=== PATIENT | male | born 1945 | race Caucasian/White ===

== ENCOUNTER 2022-03-27 14:33 | Emergency (ER) | payer MEDICARE, OTHER ==
[~2022-03-27] VITALS: Ht 177.8 cm; Wt 77.0 kg
[~2022-03-27 14:33] MED LIST: ATOR40TA52 PO; CLOP75TA70 PO; ENAL10TA12 PO; FINA5TAB4 PO; GLIP10TA9 PO; LEVO500T31 PO; PRAZ1CAP PO; ROPI1TAB PO; SERT-160 PO; TOLT2CAP PO; VALP250C PO; VALP250C3 PO
[2022-03-27 16:27] LABS: Basophils # (auto) 0.1 10 ^3/uL (0-0.2); Basophils % (auto) 0.6 % (0.0-2.0); Eosinophils # (auto) 0.1 10 ^3/uL (0-0.8); Eosinophils % (auto) 1.3 % (0.0-7.0); Hematocrit 41.6 % (41.0-53.0); Hemoglobin 14.1 g/dL (13.5-17.5); Lymphocytes # (auto) 1.3 10 ^3/uL (0.4-5.4); Lymphocytes % (auto) 11.6 % (10.0-50.0); Mean Corpuscular Hemoglobin 30.3 pg (28.0-32.0); Mean Corpuscular Hgb Conc. 33.9 g/dL (32.0-36.0); Mean Corpuscular Volume 89.2 fL (80.0-100.0); Monocytes # (auto) 0.7 10 ^3/uL (0-1.3); Monocytes % (auto) 6.4 % (0.0-12.0); Neutrophils # (auto) 8.9 10 ^3/uL (1.6-8.6); Neutrophils % (auto) 80.1 % (37.0-80.0); Nucleated Red Blood Cells % 0.1 %; Red Blood Cells 4.66 10^6/uL (4.5-5.90); Red Cell Distribution Width 13.6 % (11.8-14.3); White Blood Cell 11.1 10^3/uL (4.4-10.8)
[2022-03-27 16:37] LABS: Albumin 3.4 g/dL (3.4-5.0); Calcium 8.8 mg/dL (8.5-10.1); Potassium 3.5 mmol/L (3.5-5.1)
[2022-03-27] MEDS ORDERED: LIDOCAINE W/ EPINEPHRINE 2% INJ 20ML VIAL ONE (16:37)
[2022-03-27 16:39] LABS: BUN/Creatinine Ratio 33.3
[2022-03-27 16:41] LABS: Bilirubin, Total 0.4 mg/dL (0.2-1.0); Total Protein 7.3 g/dL (6.4-8.2)
[2022-03-27] MEDS ORDERED: LIDOCAINE W/ EPINEPHRINE 2% INJ 20ML VIAL IJ ONE (16:45)
[2022-03-27 20:51] VITALS: BP 161/89
[2022-03-27] MEDS ORDERED: diphenhdrAMINE HCL 50 MG/1 ML VL IV ONE (21:15)
== END 2022-03-27 21:41 ==
LOC: ER 14:33 → EDBD 14:33 → ER 21:41
DX: S06.5XAA Traumatic subdural hemorrhage with loss of consciousness status unknown, initial encounter (principal); S61.210A Laceration without foreign body of right index finger without damage to nail, initial encounter; S01.81XA Laceration without foreign body of other part of head, initial encounter; E78.5 Hyperlipidemia, unspecified; E11.9 Type 2 diabetes mellitus without complications; I10 Essential (primary) hypertension; Z88.0 Allergy status to penicillin; Z79.899 Other long term (current) drug therapy; Z79.84 Long term (current) use of oral hypoglycemic drugs; Z86.73 Personal history of transient ischemic attack (TIA), and cerebral infarction without residual deficits; Z90.49 Acquired absence of other specified parts of digestive tract; Z20.822 Contact with and (suspected) exposure to COVID-19; W18.39XA Other fall on same level, initial encounter; Y93.89 Activity, other specified; Y92.511 Restaurant or cafe as the place of occurrence of the external cause; Y99.8 Other external cause status
CPT/HCPCS: 12011; 36415; 70450; 71045; 72125; 73130; 80053; 85025; 87426; 93005; 99285; J1200; 12051

== ENCOUNTER 2022-04-12 12:11 | Emergency (ER) | payer MEDICARE ==
[~2022-04-12] VITALS: Ht 175.3 cm; Wt 63.6 kg
[2022-04-12] MEDS ORDERED: SUCCINYLCHOLINE CHLORIDE 20 MG/ML 10ML VIAL IV ONE ×2 (12:17→12:30)
[2022-04-12] MEDS ORDERED: ETOMIDATE (2MG/ML) 20ML VIAL IV ONE ×2 (12:17→12:30)
[2022-04-12] MEDS ORDERED: MIDAZOLAM DRIP 50 mg/50mL 50 ML IV ONE (12:18)
[2022-04-12] MEDS ORDERED: methylPREDNISolone SOD SUCC 125 MG/2 ML VL ONE (12:19)
[2022-04-12 12:30] VITALS: BP 101/55
[2022-04-12] MEDS ORDERED: methylPREDNISolone SOD SUCC 125 MG/2 ML VL IV ONE (12:30)
[2022-04-12] MEDS ORDERED: MIDAZOLAM DRIP 50 mg/50mL 50 ML IV SCH (12:30)
[2022-04-12 13:06] LABS: Basophils # (auto) 0 10 ^3/uL (0-0.2); Basophils % (auto) 0.1 % (0.0-2.0); Eosinophils # (auto) 0 10 ^3/uL (0-0.8); Hemoglobin 14.4 g/dL (13.5-17.5); Lymphocytes # (auto) 1.3 10 ^3/uL (0.4-5.4); Monocytes # (auto) 2.4 10 ^3/uL (0-1.3); Neutrophils # (auto) 34.3 10 ^3/uL (1.6-8.6)
[2022-04-12] MEDS ORDERED: NOREPINEPHRINE 8 MG/250ML KIT 250 ML IV ONE (13:08)
[2022-04-12 13:09] LABS: Hematocrit 42.9 % (41.0-53.0); Lymphocytes % (auto) 3.4 % (10.0-50.0); Mean Corpuscular Hemoglobin 30.3 pg (28.0-32.0); Mean Corpuscular Hgb Conc. 33.6 g/dL (32.0-36.0); Mean Corpuscular Volume 90.2 fL (80.0-100.0); Monocytes % (auto) 6.2 % (0.0-12.0); Neutrophils % (auto) 90.3 % (37.0-80.0); Red Blood Cells 4.75 10^6/uL (4.5-5.90); Red Cell Distribution Width 13.6 % (11.8-14.3)
[2022-04-12] MEDS ORDERED: NOREPINEPHRINE 8 MG/250ML KIT 250 ML IV SCH (13:15)
[2022-04-12 13:21] LABS: INR 1.1 (0.9-1.15); Partial Thromboplastin Time 25.6 sec (24.6-33.4)
[2022-04-12 13:22] LABS: Alanine Aminotransferase 31 U/L (16-61); Albumin 3.7 g/dL (3.4-5.0); Anion Gap 17 (5-15); Blood Alcohol < 3.0 mg/dL (0-5); Calcium 9.5 mg/dL (8.5-10.1); Carbon Dioxide 24 mmol/L (21-32); Chloride 102 mmol/L (98-107); Magnesium 2.2 mg/dL (1.6-2.6); Potassium 4.2 mmol/L (3.5-5.1); Sodium 143 mmol/L (136-145)
[2022-04-12 13:24] LABS: Lactic Acid w/Reflex 6.2 mmol/L (0.4-2.0)
[2022-04-12 13:28] LABS: Alkaline Phosphatase 143 U/L (45-117); Aspartate Aminotransferase 25 U/L (15-37); BUN/Creatinine Ratio 13.9; Bilirubin, Total 0.9 mg/dL (0.2-1.0); Blood Urea Nitrogen 15 mg/dL (7-18); GFR African American 85 mL/min; GFR Non-African American 71 mL/min; Total Protein 7.4 g/dL (6.4-8.2)
[2022-04-12 13:32] LABS: White Blood Cell 37.9 10^3/uL (4.4-10.8)
[2022-04-12 13:49] LABS: Glucose 476 mg/dL (74-106)
[2022-04-12 13:50] VITALS: BP 103/57
[2022-04-12 14:39] LABS: Cannabinoid Screen, Urine NEGATIVE (NEGATIVE)
[2022-04-12 15:10] LABS: Alcohol, Urine < 3.0 mg/dL (0-10)
[2022-04-12 15:11] LABS: Amphetamine Screen, Urine <125 (NEGATIVE); Barbiturate Scree,Urine <20 (NEGATIVE); Benzodiazephine Screen, Urine 38 (NEGATIVE); Cocaine Screen, Urine <35 (NEGATIVE); Opiate Scree,Urine <140 (NEGATIVE); Phencyclidine Screen, Urine <5 (NEGATIVE)
[2022-04-12 15:35] VITALS: BP 105/60
[2022-04-12] MEDS ORDERED: MANNITOL 20% SOLN 100 gm/500ml 125 ML IV SCH (18:00)
[2022-04-12 18:12] LABS: Urine Blood 1+ /uL (Negative)
== END 2022-04-12 16:00 | disposition short-term general hospital (02) ==
LOC: EDBD 12:11 → ER 12:11
DX: G93.41 Metabolic encephalopathy (principal); R06.89 Other abnormalities of breathing; R41.82 Altered mental status, unspecified; E11.9 Type 2 diabetes mellitus without complications; E78.5 Hyperlipidemia, unspecified; I10 Essential (primary) hypertension; Z86.73 Personal history of transient ischemic attack (TIA), and cerebral infarction without residual deficits; Z90.49 Acquired absence of other specified parts of digestive tract
CPT/HCPCS: 31500; 36415; 36600; 70450; 71045; 80053; 80307; 80320; 81003; 82805; 83605; 83735; 84484; 85025; 85610; 85730; 87040; 87070; 87077; 87186; 87205; 93005; 96365; 96375; 99291; J0330; J1953; J2250; J2930; J7060; 94002